=== PATIENT | female | born 1980 | race African-American/Black ===

== ENCOUNTER 2017-03-03 15:35 | Emergency (ER) | payer OTHER ==
[~2017-03-03] VITALS: Ht 152.4 cm; Wt 63.5 kg
[~2017-03-03 15:35] MED LIST: PROT40TA PO; VENTAER INH
[2017-03-03 15:37] VITALS: BP 174/112; PULSE 93; RESP 20; TEMP 98.1; O2SAT 100
[2017-03-03 16:20] VITALS: RESP 17; O2SAT 100
[2017-03-03] MEDS ORDERED: SODIUM CHLOR 0.9% 1000 ML INJ 1,000 ML IV SCH (16:22)
[2017-03-03] MEDS ORDERED: FAMOTIDINE 20 MG/2 ML VIAL IV PUSH ONE (16:30)
[2017-03-03] MEDS ORDERED: SODIUM CHLORIDE 0.9% FLUSH 10 ML FLUSH IV FLUSH PRN (16:30)
[2017-03-03] MEDS ORDERED: MORPHINE SULFATE 4 MG/ML INJ IV PUSH ONE (16:30)
[2017-03-03] MEDS ORDERED: ONDANSETRON HCL 4 MG/2 ML VIAL IVP ONE (16:30)
--- NOTE | 2017-03-03 16:32 | PD ---
HPI Chief Complaint: Abdominal Pain Time Seen by Provider: 16:03 Travel History International Travel<30 days: No Contact w/Intl Traveler<30days: No Traveled to known affect area: No History of Present Illness HPI 36-year-old female complains of abdominal pain with nausea vomiting. Patient states that she started having abdominal pain a week ago. Patient was seen by her personal physician and had outpatient CT scan abdomen pelvis done. CT scan abdomen and pelvis done at [facility] on February 23 shows cholelithiasis. No acute process. Patient states that abdominal pain is worse today. Patient states that the pain is localized to the upper abdomen. Patient states the pain cramping pain and sharp pain. Patient has intermittent nausea vomiting with the pain. Patient states that she started having mid back pain today. Patient denies any dysuria or frequency. Patient denies any vaginal discharge or bleeding. On a scale of 1-10 the pain is an 8. Patient status post gastric bypass surgery in June 2015. Patient has an IUD in place. Patient has history of ovarian cyst. PFSH Past Medical History Asthma: Yes Cancer: No Cardiovascular Problems: No Diabetes: Yes (gestational only) Patient Takes Glucophage: No (pt does not take meds) Diminished Hearing: No Endocrine: No Gastrointestinal Disorders: Yes (ACID REFLUX) GERD: Yes Hepatitis: No Hiatal Hernia: No Immune Disorder: No Musculoskeletal: Yes (back pain) Neurologic: No Reproductive: No Respiratory: Yes (sleep apnea, uses a machine , asthma,) Thyroid Disease: No Tetanus Vaccination: > 5 Years Influenza Vaccination: Yes ?: Not LMP: mirena, spotted last week : 1 Para: 1 Past Surgical History Abdominal Surgery: Yes (bariatric sx) Cardiac Surgery: No Section: Yes (x 1) Ear Surgery: No Endocrine Surgery: No Eye Surgery: No Genitourinary Surgery: Yes (UPPER ENDOSCOPY) Gynecologic Surgery: Yes (c section, ) Joint Replacement: No Oral Surgery: No Pacemaker: No Thoracic Surgery: No Other Surgery: Yes Social History Alcohol Use: Yes (occasionally) Tobacco Use: No Substance Use: No Allergies-Medications (Allergen,Severity, Reaction): Coded Allergies: latex (Verified Adverse Reaction, Severe, Hives, 03/03/17) Reported Meds & Prescriptions Reported Meds & Active Scripts Active No Active Prescriptions or Reported Medications Review of Systems General / Constitutional: No: Fever Eyes: No: Visual changes HENT: No: Headaches Cardiovascular: No: Chest Pain or Discomfort Respiratory: No: Shortness of Breath Gastrointestinal: Positive: Abdominal Pain Genitourinary: No: Dysuria Musculoskeletal: No: Pain Skin: No Rash Neurologic: No: Weakness Psychiatric: No: Depression Endocrine: No: Polydipsia Hematologic/Lymphatic: No: Easy Bruising Physical Exam Narrative GENERAL: Well-nourished, well-developed patient. SKIN: Focused skin assessment warm/dry. HEAD: Normocephalic. EYES: No scleral icterus. No injection or drainage. NECK: Supple, trachea midline. No JVD or lymphadenopathy. CARDIOVASCULAR: Regular rate and rhythm without murmurs, gallops, or rubs. RESPIRATORY: Breath sounds equal bilaterally. No accessory muscle use. GASTROINTESTINAL: Abdomen soft, nondistended. Patient has moderate tenderness on palpation epigastric and right upper quadrant of the abdomen. No rebound tenderness. No mass. MUSCULOSKELETAL: No cyanosis, or edema. BACK: Nontender without obvious deformity. No CVA tenderness. Data Data Last Documented VS Vital Signs Date Time Temp Pulse Resp B/P (MAP) Pulse Ox O2 Delivery O2 Flow Rate FiO2 03/03/17 16:49 16 03/03/17 16:20 100 Room Air 03/03/17 15:37 98.1 93 Orders Orders Complete Blood Count With Diff (03/03/17 16:22) Comprehensive Metabolic Panel (03/03/17 16:22) Lipase (03/03/17 16:22) Urinalysis - C+S If Indicated (03/03/17 16:22) Us Abdomen Gallbladder (03/03/17 ) Iv Access Insert/Monitor (03/03/17 16:22) Ecg Monitoring (03/03/17 16:22) Oximetry (03/03/17 16:22) Ondansetron Inj (Zofran Inj) (03/03/17 16:30) Sodium Chlor 0.9% 1000 Ml Inj (Ns 1000 M (03/03/17 16:22) Sodium Chloride 0.9% Flush (Ns Flush) (03/03/17 16:30) Famotidine Inj (Pepcid Inj) (03/03/17 16:30) Morphine Inj (Morphine Inj) (03/03/17 16:45) Hydromorphone Pf Inj (Dilaudid Pf Inj) (03/03/17 18:45) Labs Laboratory Tests Test 03/03/17 16:25 03/03/17 16:40 03/03/17 17:00 Blood Urea Nitrogen 11 MG/DL Creatinine 0.66 MG/DL Random Glucose 88 MG/DL Total Protein 7.1 GM/DL Albumin 3.9 GM/DL Calcium Level 8.5 MG/DL Alkaline Phosphatase 91 U/L Aspartate Amino Transf (AST/SGOT) 14 U/L Alanine Aminotransferase (ALT/SGPT) 27 U/L Total Bilirubin 0.3 MG/DL Sodium Level 141 MEQ/L Potassium Level 3.9 MEQ/L Chloride Level 107 MEQ/L Carbon Dioxide Level 26.9 MEQ/L Anion Gap 7 MEQ/L Estimat Glomerular Filtration Rate 122 ML/MIN Lipase 104 U/L Urine Color YELLOW Urine Turbidity CLEAR Urine pH 5.5 Urine Specific [place] 1.026 Urine Protein TRACE mg/dL Urine Glucose (UA) NEG mg/dL Urine Ketones TRACE mg/dL Urine Occult Blood NEG Urine Nitrite NEG Urine Bilirubin NEG Urine Urobilinogen 2.0 MG/DL Urine Leukocyte Esterase NEG Urine RBC 1 /hpf Urine WBC 2 /hpf Urine Squamous Epithelial Cells 2 /hpf Urine Bacteria RARE /hpf Urine Mucus FEW /lpf Microscopic Urinalysis Comment CULT NOT INDICATED White Blood Count 7.5 TH/MM3 Red Blood Count 4.12 MIL/MM3 Hemoglobin 12.0 GM/DL Hematocrit 36.4 % Mean Corpuscular Volume 88.4 FL Mean Corpuscular Hemoglobin 29.1 PG Mean Corpuscular Hemoglobin Concent 32.9 % Red Cell Distribution Width 13.6 % Platelet Count 246 TH/MM3 Mean Platelet Volume 8.1 FL Neutrophils (%) (Auto) 69.3 % Lymphocytes (%) (Auto) 23.4 % Monocytes (%) (Auto) 5.5 % Eosinophils (%) (Auto) 1.3 % Basophils (%) (Auto) 0.5 % Neutrophils # (Auto) 5.2 TH/MM3 Lymphocytes # (Auto) 1.8 TH/MM3 Monocytes # (Auto) 0.4 TH/MM3 Eosinophils # (Auto) 0.1 TH/MM3 Basophils # (Auto) 0.0 TH/MM3 CBC Comment DIFF FINAL Differential Comment MDM Medical Decision Making Medical Screen Exam Complete: Yes Emergency Medical Condition: Yes Interpretation(s) 1818 p.m. Gallbladder ultrasound shows gallstones and gallbladder sludge. Dilated common bile duct. CBC within normal limit. CMP within normal limit. UA is negative. Differential Diagnosis Differential diagnosis including gastritis, PUD, pink otitis, cholecystitis, colitis, UTI, pyelonephritis, nephrolithiasis. Narrative Course 36-year-old female with upper abdominal pain. History of gastric bypass surgery in the past. Normal saline solution 1 25 cc an hour. Pepcid 20 mg IV. Morphine 2 mg IV. Zofran 4 mg IV. I spoke with Dr. Bartlett. Patient will follow-up with him in the office in 2 days. Diagnosis Primary Impression: Gallbladder colic Patient Instructions: General Instructions Additional Instructions: Take medications as directed. Follow-up with surgeon as directed. Return if worse. Med/Other Pt SpecificInfo: Prescription(s) given Scripts Ondansetron Odt (Zofran Odt) 4 Mg Tab 4 MG SL Q6HR Y for Nausea/Vomiting, #12 TAB 0 Refills Prov: Cliff Ordaz MD 03/03/17 Pantoprazole (Protonix) 40 Mg Tab 40 MG PO DAILY for Reflux, #30 TAB 0 Refills Prov: Cliff Ordaz MD 03/03/17 Hydrocodone-Acetaminophen ([place]) 5 Mg-325 Mg Tab 1 TAB PO Q6H Y for PAIN, #20 TAB 0 Refills Prov: Cliff Ordaz MD 03/03/17 Disposition: 01 DISCHARGE HOME Condition: Stable Cliff Ordaz MD Mar 03, 2017 16:32
[2017-03-03] MEDS ORDERED: MORPHINE SULFATE 2 MG/ML INJ IV PUSH ONE (16:45)
[2017-03-03 16:49] VITALS: RESP 16
[2017-03-03 17:02] LABS: BACTERIA, URINE RARE /hpf; BLOOD, URINE NEG (NEG); GLUCOSE,URINE NEG (NEG); KETONE, URINE TRACE mg/dL (NEG); MUCUS URINE FEW /lpf (OCC); NITRITE,URINE NEG (NEG); PH, URINE 5.5 (5.0-8.5); SQUAMOUS EPITHELIAL CELL URINE 2 /hpf (0-5); URINE COLOR YELLOW (YELLW/STRAW); URINE LEUKOCYTE ESTERASE NEG (NEG)
[2017-03-03 17:05] LABS: BILIRUBIN, URINE NEG (NEG)
[2017-03-03 17:09] LABS: ALBUMIN 3.9 GM/DL (3.4-5.0); ALT (GPT) 27 U/L (10-53); AST (GOT) 14 U/L (15-37); BICARBONATE 26.9 MEQ/L (21.0-32.0); BLOOD UREA NITROGEN 11 MG/DL (7-18); CALCIUM 8.5 MG/DL (8.5-10.1); CHLORIDE 107 MEQ/L (98-107); CREATININE 0.66 MG/DL (0.50-1.00); GLOMERULAR FILTRATION RATE 122 ML/MIN (>89); GLUCOSE,RANDOM 88 MG/DL (74-106); LIPASE 104 U/L (73-393); SODIUM (NA) 141 MEQ/L (136-145)
[2017-03-03 17:11] LABS: ALKALINE PHOSPHATASE 91 U/L (45-117); TOTAL BILIRUBIN ADULT 0.3 MG/DL (0.2-1.0); TOTAL PROTEIN 7.1 GM/DL (6.4-8.2)
[2017-03-03 17:24] LABS: AUTOMATED NEUTROPHIL # 5.2 TH/MM3 (1.8-7.7); BASOPHIL % 0.5 % (0.0-2.0); EOSINOPHIL # 0.1 TH/MM3 (0-0.4); EOSINOPHIL % 1.3 % (0.0-4.0); HEMATOCRIT 36.4 % (35.0-46.0); LYMPH % 23.4 % (9.0-44.0); LYMPHOCYTE # 1.8 TH/MM3 (1.0-4.8); MEAN CELL VOLUME 88.4 FL (80.0-100.0); MEAN CORPUSCULAR HEMOGLOBIN 29.1 PG (27.0-34.0); MEAN CORPUSCULAR HGB CONC 32.9 % (32.0-36.0); MEAN PLATELET VOLUME 8.1 FL (7.0-11.0); MONO % 5.5 % (0.0-8.0); MONOCYTE # 0.4 TH/MM3 (0-0.9); NEUT % 69.3 % (16.0-70.0); PLATELET COUNT 246 TH/MM3 (150-450); RED BLOOD COUNT 4.12 MIL/MM3 (4.00-5.30); RED CELL DISTRIBUTION WIDTH 13.6 % (11.6-17.2); WHITE BLOOD COUNT 7.5 TH/MM3 (4.0-11.0)
--- NOTE | 2017-03-03 18:09 | RADRPT ---
EXAM DATE/TIME: 03/03/2017 17:16 [facility] COMPARISON: No previous studies available for comparison. INDICATIONS : Right upper quadrant pain. MEDICAL HISTORY : Gastroesophageal reflux disease. Contacts. Sleep apnea. Asthma. Diabetes. SURGICAL HISTORY : section. Endoscopy. ENCOUNTER: Initial ACUITY: 2 days PAIN SCORE: 8/10 LOCATION: Right upper quadrant MEASUREMENTS: LIVER: 16.5 cm length COMMON DUCT: 8 mm RIGHT KIDNEY: 10.4 x 4.2 x 4.3 cm FINDINGS: LIVER: Increased echotexture without focal lesion or ductal dilatation. COMMON DUCT: No intraluminal mass or stone visualized. Mild dilatation GALLBLADDER: Numerous gallstones. PANCREAS: The visualized portions are within normal limits. RIGHT KIDNEY: No evidence of hydronephrosis, stone, or mass. CONCLUSION: 1. Numerous gallstones with gallbladder sludge. Common bile duct mildly prominent at 8 mm. Fatty live r. Aidan Bowens MD on March 03, 2017 at 18:06 Board Certified Radiologist. This report was verified electronically.
[2017-03-03] MEDS ORDERED: HYDROmorphone HCL PF 2 MG/ML VIAL IV PUSH ONE (18:45)
[2017-03-03] MEDS ORDERED: NORC5TAB PO (19:17)
[2017-03-03] MEDS ORDERED: ZOFR4TAB3 SL (19:17)
[2017-03-03] MEDS ORDERED: PROT40TA PO (19:17)
== END 2017-03-03 19:26 | disposition home or self-care (01) ==
LOC: NEPE 15:35
DX: K80.20 Calculus of gallbladder without cholecystitis without obstruction (principal); Z98.84 Bariatric surgery status
CPT/HCPCS: 76705; 80053; 81001; 83690; 85025; 96361; 96374; 96375; 99285; J1170; J2270; J2405; J7030